=== PATIENT | female | born 1940 | race Asian ===

== ENCOUNTER 2021-11-22 11:53 | Emergency (ER) | payer MEDICARE, OTHER ==
[~2021-11-22] VITALS: Ht 152.4 cm; Wt 29.2 kg
[2021-11-22 13:14] LABS: BASOPHILS % (AUTO) 0.2 % (0.0-2.0); EOSINOPHILS % (AUTO) 0.6 % (1.0-6.0); HEMATOCRIT 35.4 % (36-46); HEMOGLOBIN 11.3 g/dL (12.0-16.0); LYMPHOCYTES # (AUTO) 1.1 K/uL (1.0-4.8); LYMPHOCYTES % (AUTO) 11.4 % (22.0-44.0); MEAN CORPUSCULAR HEMOGLOBIN 26.9 pg (26.0-34.0); MEAN CORPUSCULAR VOLUME 84 fL (80-100); MONOCYTES # (AUTO) 0.7 K/uL (0.1-1.0); MONOCYTES % (AUTO) 7.3 % (2.0-9.0); NEUTROPHILS # (AUTO) 7.8 K/uL (1.8-7.7); NEUTROPHILS % (AUTO) 80.5 % (40.0-70.0); PLATELET COUNT (AUTO) 433 K/uL (150-450); RED BLOOD CELL COUNT(AUTO) 4.22 MIL/uL (4.00-5.20); RED CELL DISTRIBUTION WIDTH 15.7 % (11.5-14.5)
[2021-11-22 13:23] LABS: APPEARANCE,URINE CLEAR (CLEAR); BILIRUBIN,URINE NEGATIVE (NEGATIVE); GLUCOSE, URINE (UA) NEGATIVE (NEGATIVE); KETONES,URINE NEGATIVE (NEGATIVE); LEUKOCYTE ESTERASE ,URINE NEGATIVE (NEGATIVE); NITRATE,URINE NEGATIVE (NEGATIVE); OCCULT BLOOD,URINE NEGATIVE (NEGATIVE); PROTEIN,URINE NEGATIVE (NEGATIVE); SPECIFIC GRAVITIY, URINE 1.022 (1.003-1.030); UROBILINOGEN,URINE <=1.0 mg/dL (<=1.0)
[2021-11-22 13:26] LABS: ANION GAP 5 mmol/L (8-16); CALCIUM, TOTAL 9.5 mg/dL (8.8-10.5); CARBON DIOXIDE 34 mmol/L (22-29); CHLORIDE 97 mmol/L (98-107); CREATININE 0.82 mg/dL (0.60-1.30); GLUCOSE,RANDOM 116 mg/dL (70-110); POTASSIUM 3.6 mmol/L (3.5-5.1); SODIUM SERUM 136 mmol/L (136-145); UREA NITROGEN, BLOOD 15 mg/dL (7-18)
[2021-11-22 13:27] LABS: GLOMERULAR FILTR. RATE CALC > 60 mL/min (>60)
[2021-11-22 13:29] LABS: ALANINE AMINOTRANSFERASE 17 U/L (12-78); ALBUMIN 3.3 g/dL (3.4-5.0); ALKALINE PHOSPHATASE 74 U/L (46-116); ASPARTATE AMINOTRANSFERASE 18 U/L (15-37); BILIRUBIN,TOTAL 0.3 mg/dL (0.1-1.0); TOTAL PROTEIN, SERUM 8.1 g/dL (6.4-8.2)
[2021-11-22 14:40] LABS: COVID AG,FIA SOURCE NASAL SWAB
[2021-11-22] MEDS ORDERED: CefTRIAXone SODIUM 500 MG in DEXTROSE 5%-WATER 50 ML IV ONE (16:45)
[2021-11-22] MEDS ORDERED: AZITHROMYCIN 500 MG TABLET PO ONE (16:45)
[2021-11-22] MEDS ORDERED: AZIT250T9 PO (16:48)
[2021-11-22] MEDS ORDERED: LIDOCAINE/PF 1% 2 ML VIAL IM ONE (17:15)
[2021-11-22] MEDS ORDERED: CefTRIAXone SODIUM 1 GM/VIAL IM ONE (17:15)
[2021-11-22 17:30] VITALS: BP 125/62
== END 2021-11-22 17:55 | disposition home or self-care (01) ==
LOC: EMS 11:56
DX: R04.2 Hemoptysis (principal); J44.9 Chronic obstructive pulmonary disease, unspecified; I10 Essential (primary) hypertension; R05.3 Chronic cough; Z87.891 Personal history of nicotine dependence; Z20.822 Contact with and (suspected) exposure to COVID-19
CPT/HCPCS: 99285; 71250; 71046; 87426; 80053; 81003; 85025; 36415; 96372; J0696; J3490; Q9967; J7060

== ENCOUNTER 2023-12-28 15:24 | Inpatient (IN) | payer MEDICARE, OTHER ==
[~2023-12-28] VITALS: Ht 157.5 cm; Wt 39.4 kg
[~2023-12-28 15:24] MED LIST: ACET-2247 PO; ALBU18HF12 IH; AMOX-426 PO; ASPI-1450 PO; CHOL100062 PO; FERR325T27 PO; FLUT1BLS IH; MEGE400O44 PO
[2023-12-28] MEDS ORDERED: 0.9% SODIUM CHLORIDE 10 ML SYRINGE IVP PRN (15:30)
[2023-12-28] MEDS ORDERED: ASPI-1444 PO (15:37)
[2023-12-28] MEDS ORDERED: MIRT7.5T11 PO (15:37)
[2023-12-28] MEDS ORDERED: DOCU100C33 PO (15:37)
[2023-12-28] MEDS ORDERED: OMEP10CA5 PO (15:37)
[2023-12-28 15:43] LABS: ABG BASE EXCESS 16.1 mmol/L (-2.0-3.0); ABG CARBOXYHEMOGLOBIN 0.4 % (0.5-1.5); ABG HCO3 36.1 mmol/L (21.0-28.0); ABG METHEMOGLOBIN 0.9 % (0.0-1.5); ABG OXYGEN CONTENT 15.3 mL/dL (15.0-23.0); ABG OXYGEN SATURATION 99.7 % (94.0-98.0); ABG OXYHEMOGLOBIN 98.4 % (94.0-98.0); ABG PCO2 137 mmHg (32.0-45.0); ABG TOTAL HEMOGLOBIN 10.4 G/dL (12.0-16.0); SOURCE, BLOOD GAS ARTERIAL; TEMPERATURE, FAHRENHEIT, BG 98.6 FAHREN (96.0-98.6)
[2023-12-28 15:44] LABS: ABG PH 7.137 (7.350-7.450); ALLEN TEST, BLOOD GAS Positive; O2 DEVICE,BLOOD GAS BAG VALVE MASK (ROOM AIR); PO2, ARTERIAL BG 350.8 mmHg (83.0-108.0); SITE, BLOOD GAS LFT RADIAL
[2023-12-28] MEDS: SODIUM CHLORIDE 0.9% 900 ML IV ONE (15:48)
[2023-12-28 15:57] LABS: BASOPHILS % (AUTO) 0.1 % (0.0-2.0); EOSINOPHILS % (AUTO) 0 % (1.0-6.0); HEMATOCRIT 32.6 % (36-46); HEMOGLOBIN 9.6 g/dL (12.0-16.0); LYMPHOCYTES # (AUTO) 2.2 K/uL (1.0-4.8); LYMPHOCYTES % (AUTO) 29.5 % (22.0-44.0); MEAN CORPUSCULAR HGB CONC 29.3 G/dL (31.0-37.0); MEAN CORPUSCULAR VOLUME 103 fL (80-100); MONOCYTES # (AUTO) 0.5 K/uL (0.1-1.0); MONOCYTES % (AUTO) 6.8 % (2.0-9.0); NEUTROPHILS # (AUTO) 4.7 K/uL (1.8-7.7); NEUTROPHILS % (AUTO) 63.6 % (40.0-70.0); PLATELET COUNT (AUTO) 387 K/uL (150-450); RED BLOOD CELL COUNT(AUTO) 3.18 MIL/uL (4.00-5.20); WHITE BLOOD COUNT (AUTO) 7.3 K/uL (4.5-11.0)
[2023-12-28 16:00] VITALS: PULSE 83; RESP 27; O2SAT 100
[2023-12-28 16:09] LABS: PROTHROMBIN TIME 10.7 SEC (9.4-11.6)
[2023-12-28] MEDS: CefTRIAXone 1 GM/DEXTROSE 50 ML IV ONE (16:19)
[2023-12-28 16:20] LABS: COVID AG,FIA SOURCE NASAL SWAB
[2023-12-28 16:20] LABS: ALANINE AMINOTRANSFERASE 16 U/L (12-78); ALBUMIN 2.8 g/dL (3.4-5.0); ALKALINE PHOSPHATASE 60 U/L (46-116); ANION GAP 3 mmol/L (8-16); ASPARTATE AMINOTRANSFERASE 34 U/L (15-37); BILIRUBIN,TOTAL 0.2 mg/dL (0.1-1.0); CALCIUM, TOTAL 9.7 mg/dL (8.8-10.5); CHLORIDE 98 mmol/L (98-107); CREATININE 0.81 mg/dL (0.60-1.30); GLOMERULAR FILTR. RATE CALC > 60 mL/min (>60); GLUCOSE,RANDOM 221 mg/dL (70-110); POTASSIUM 4.4 mmol/L (3.5-5.1); SODIUM SERUM 143 mmol/L (136-145); UREA NITROGEN, BLOOD 21 mg/dL (7-18)
[2023-12-28] MEDS: MethylPREDNISolone SOD SUCC 125 MG/2 ML VIAL IVP ONE (16:20)
[2023-12-28 16:22] LABS: LACTIC ACID 3.5 mmol/L (0.4-2.0)
[2023-12-28 16:23] LABS: CARBON DIOXIDE 42 mmol/L (22-29)
[2023-12-28 16:38] LABS: INFLUENZA TYPE A NEGATIVE FOR TYPE A (NEGATIVE); INFLUENZA TYPE B NEGATIVE FOR TYPE B (NEGATIVE); SARS-COV2 (COVID) ANTIGEN,FIA Negative (Negative)
[2023-12-28 16:46] VITALS: PULSE 81; RESP 31; O2SAT 97
[2023-12-28] MEDS: ALBUTEROL SULFATE 2.5 MG/0.5 ML NEB SOLUTION NEB ONE (16:53)
[2023-12-28] MEDS ORDERED: DEXTROSE 50%-WATER 25 GM/50 ML SYRINGE IVP PRN (17:00)
[2023-12-28 17:01] VITALS: PULSE 83; RESP 34; O2SAT 98
[2023-12-28 17:12] LABS: ABG BASE EXCESS 14.7 mmol/L (-2.0-3.0); ABG CARBOXYHEMOGLOBIN 0.8 % (0.5-1.5); ABG HCO3 35.1 mmol/L (21.0-28.0); ABG METHEMOGLOBIN 0.7 % (0.0-1.5); ABG OXYGEN CONTENT 12.8 mL/dL (15.0-23.0); ABG OXYGEN SATURATION 93.8 % (94.0-98.0); ABG OXYHEMOGLOBIN 92.4 % (94.0-98.0); ABG PCO2 119 mmHg (32.0-45.0); ABG TOTAL HEMOGLOBIN 9.8 G/dL (12.0-16.0); PO2, ARTERIAL BG 76.6 mmHg (83.0-108.0); SOURCE, BLOOD GAS ARTERIAL; TEMPERATURE, FAHRENHEIT, BG 96.4 FAHREN (96.0-98.6)
[2023-12-28 17:13] LABS: ABG PH 7.173 (7.350-7.450); ALLEN TEST, BLOOD GAS Positive; SITE, BLOOD GAS LFT RADIAL
[2023-12-28 17:14] LABS: ABG A-A DIFF O2 520.5 mmHg (10-20.0); O2 DEVICE,BLOOD GAS BIPAP (ROOM AIR)
[2023-12-28] MEDS ORDERED: ALBUTEROL SULFATE 2.5 MG/0.5 ML NEB SOLUTION NEB PRN (17:15)
[2023-12-28] MEDS ORDERED: BISACODYL 10 MG RECTAL RECTAL SUPPOSITORY PR PRN (17:15)
[2023-12-28] MEDS ORDERED: ONDANSETRON HCL 4 MG/2 ML VIAL IVP PRN (17:15)
[2023-12-28] MEDS ORDERED: ETOMIDATE 2 MG/ML 10 ML VIAL ONE (17:27)
[2023-12-28] MEDS ORDERED: ROCURONIUM BROMIDE 10 MG/ML 5 ML VIAL ONE (17:28)
[2023-12-28] MEDS ORDERED: PROPOFOL 1000 MG/ISO-OSM 100 ML ONE (17:28)
[2023-12-28 17:50] VITALS: PULSE 83; RESP 24; O2SAT 100
[2023-12-28] MEDS: ROCURONIUM BROMIDE 10 MG/ML 5 ML VIAL IVP ONE (18:07)
[2023-12-28] MEDS: ETOMIDATE 2 MG/ML 10 ML VIAL IVP ONE (18:07)
[2023-12-28] MEDS: PROPOFOL 1000 MG/ISO-OSM 100 ML IV PRN (18:16)
[2023-12-28] MEDS: LABETALOL HCL 5 MG/ML 20 ML VIAL IVP ONE (18:51)
[2023-12-28 18:54] LABS: ABG BASE EXCESS 16.2 mmol/L (-2.0-3.0); ABG CARBOXYHEMOGLOBIN 0.4 % (0.5-1.5); ABG HCO3 37.2 mmol/L (21.0-28.0); ABG METHEMOGLOBIN 0.7 % (0.0-1.5); ABG OXYGEN CONTENT 15.7 mL/dL (15.0-23.0); ABG OXYGEN SATURATION 99.7 % (94.0-98.0); ABG OXYHEMOGLOBIN 98.6 % (94.0-98.0); ABG PCO2 74 mmHg (32.0-45.0); ABG PH 7.359 (7.350-7.450); ABG TOTAL HEMOGLOBIN 10.4 G/dL (12.0-16.0); SOURCE, BLOOD GAS ARTERIAL
[2023-12-28 18:55] LABS: ALLEN TEST, BLOOD GAS Positive; O2 DEVICE,BLOOD GAS VENTILATOR (ROOM AIR); PEEP,BG 5 cm H2O; PO2, ARTERIAL BG 428.1 mmHg (83.0-108.0); SITE, BLOOD GAS RT RADIAL; SPONTANEOUS VT, BG 278 ml; VT, ABG 270 ml
[2023-12-28 19:00] VITALS: PULSE 60; RESP 24; O2SAT 100
[2023-12-28 19:12] LABS: APPEARANCE,URINE HAZY (CLEAR); BILIRUBIN,URINE NEGATIVE (NEGATIVE); COLOR,URINE YELLOW (YELLOW); GLUCOSE, URINE (UA) TRACE mg/dL (NEGATIVE); KETONES,URINE NEGATIVE (NEGATIVE); LEUKOCYTE ESTERASE ,URINE NEGATIVE (NEGATIVE); NITRATE,URINE NEGATIVE (NEGATIVE); OCCULT BLOOD,URINE MODERATE (NEGATIVE); PH,URINE 6.5 (5.0-8.0); PROTEIN,URINE 100-200,SEE CONFIRM mg/dL (NEGATIVE); SPECIFIC GRAVITIY, URINE 1.014 (1.003-1.030); UROBILINOGEN,URINE <=1.0 mg/dL (<=1.0)
[2023-12-28 19:26] LABS: SULFOSALICYLIC ACID,URINE 2+ (Negative)
[2023-12-28 19:27] LABS: BACTERIA,URINE Few /HPF (None Seen); SQUAMOUS EPITHELIAL CELL,UR Few /LPF (None Seen)
[2023-12-28 22:08] VITALS: PULSE 67; RESP 24; O2SAT 100
[2023-12-28] MEDS: MethylPREDNISolone SOD SUCC 125 MG/2 ML VIAL IVP SCH (23:44)
[2023-12-28] MEDS: HEPARIN SODIUM,PORCINE 5,000 UNITS/ML VIAL SQ SCH (23:44)
[2023-12-28] MEDS: CHLORHEXIDINE GLUCONATE 2% TOWELETTE [2'S/6'S] TP SCH (23:45)
[2023-12-28 23:51] LABS: GLUCOMETER DEV NAME(LOC) ICU.S6; GLUCOSE,POINT OF CARE 152 MG/DL (70-110)
[2023-12-28] MEDS: ETHYL ALCOHOL 62% ANTISEPTIC NASAL SANITIZER 0.6 ML AMPUL NASAL SCH (23:52)
[2023-12-29] VITALS (14 sets, daily range): BP systolic 125–155; BP diastolic 63–76; PULSE 62–76; RESP 20–24; TEMP 95.7–100.5; O2SAT 98–100
[2023-12-29] MEDS: ACETAMINOPHEN 325 MG TABLET PO PRN (03:03)
[2023-12-29 05:56] LABS: GLUCOMETER DEV NAME(LOC) ICU.S6; GLUCOSE,POINT OF CARE 117 MG/DL (70-110)
[2023-12-29 06:13] LABS: ANION GAP 3 mmol/L (8-16); CALCIUM, TOTAL 9.5 mg/dL (8.8-10.5); CARBON DIOXIDE 38 mmol/L (22-29); CHLORIDE 101 mmol/L (98-107); CREATININE 0.72 mg/dL (0.60-1.30); GLOMERULAR FILTR. RATE CALC > 60 mL/min (>60); GLUCOSE,RANDOM 140 mg/dL (70-110); POTASSIUM 4.6 mmol/L (3.5-5.1); SODIUM SERUM 142 mmol/L (136-145); UREA NITROGEN, BLOOD 30 mg/dL (7-18)
[2023-12-29 06:51] LABS: BASOPHILS % (AUTO) 0.1 % (0.0-2.0); EOSINOPHILS % (AUTO) 0 % (1.0-6.0); HEMATOCRIT 31.5 % (36-46); HEMOGLOBIN 9.7 g/dL (12.0-16.0); LYMPHOCYTES # (AUTO) 0.3 K/uL (1.0-4.8); LYMPHOCYTES % (AUTO) 2.1 % (22.0-44.0); MEAN CORPUSCULAR HEMOGLOBIN 30.2 pg (26.0-34.0); MEAN CORPUSCULAR HGB CONC 30.6 G/dL (31.0-37.0); MEAN CORPUSCULAR VOLUME 99 fL (80-100); MONOCYTES # (AUTO) 0.2 K/uL (0.1-1.0); MONOCYTES % (AUTO) 1.1 % (2.0-9.0); NEUTROPHILS # (AUTO) 13.9 K/uL (1.8-7.7); PLATELET COUNT (AUTO) 327 K/uL (150-450); RED BLOOD CELL COUNT(AUTO) 3.19 MIL/uL (4.00-5.20); RED CELL DISTRIBUTION WIDTH 18.9 % (11.5-14.5); WHITE BLOOD COUNT (AUTO) 14.3 K/uL (4.5-11.0)
[2023-12-29 06:54] LABS: NEUTROPHILS % (AUTO) 96.7 % (40.0-70.0)
[2023-12-29] MEDS: PANTOPRAZOLE SODIUM 40 MG/VIAL IVP SCH (08:04)
[2023-12-29] MEDS: PROPOFOL 1000 MG/ISO-OSM 100 ML IV PRN (11:12)
[2023-12-29] MEDS: SODIUM CHLORIDE 0.9% 1,000 ML IV ONE (12:57)
[2023-12-29] MEDS: AZITHROMYCIN 500 MG/NS 250 ML IV SCH (14:12)
[2023-12-29] MEDS: CefTRIAXone 1 GM/DEXTROSE 50 ML IV SCH (15:50)
[2023-12-29 16:38] LABS: MAGNESIUM 1.7 mg/dL (1.80-2.40); PHOSPHORUS 2.9 mg/dL (2.5-4.9)
[2023-12-29 17:42] LABS: ABG BASE EXCESS 12.8 mmol/L (-2.0-3.0); ABG HCO3 35.4 mmol/L (21.0-28.0); ABG METHEMOGLOBIN 0.1 % (0.0-1.5); ABG OXYGEN CONTENT 12.9 mL/dL (15.0-23.0); ABG OXYGEN SATURATION 98.4 % (94.0-98.0); ABG OXYHEMOGLOBIN 98.3 % (94.0-98.0); ABG PCO2 47 mmHg (32.0-45.0); ABG PH 7.506 (7.350-7.450); ABG TOTAL HEMOGLOBIN 9.2 G/dL (12.0-16.0); PO2, ARTERIAL BG 115.2 mmHg (83.0-108.0); SOURCE, BLOOD GAS ARTERIAL; TEMPERATURE, FAHRENHEIT, BG 99.9 FAHREN (96.0-98.6)
[2023-12-29] MEDS: RINGERS SOLUTION,LACTATED 1,000 ML IV SCH (17:42)
[2023-12-29 17:43] LABS: ALLEN TEST, BLOOD GAS Positive; O2 DEVICE,BLOOD GAS VENTILATOR (ROOM AIR); PEEP,BG 5 cm H2O; SITE, BLOOD GAS RT RADIAL; SPONTANEOUS VT, BG 273 ml; VT, ABG 270 ml
[2023-12-29 17:51] LABS: GLUCOMETER DEV NAME(LOC) ICUN.5; GLUCOSE,POINT OF CARE 123 MG/DL (70-110)
[2023-12-29 19:01] LABS: GLUCOMETER DEV NAME(LOC) ICUN.5; GLUCOSE,POINT OF CARE 143 MG/DL (70-110)
[2023-12-30] VITALS (16 sets, daily range): BP systolic 124–159; BP diastolic 56–65; PULSE 57–93; RESP 20–26; TEMP 97.8–99.1; O2SAT 95–100
[2023-12-30] MEDS: HydrALAZINE HCL 20 MG/ML VIAL IVP PRN (00:29)
[2023-12-30 01:56] LABS: GLUCOMETER DEV NAME(LOC) ICUN.5; GLUCOSE,POINT OF CARE 122 MG/DL (70-110)
[2023-12-30 06:31] LABS: BASOPHILS % (AUTO) 0.1 % (0.0-2.0); EOSINOPHILS % (AUTO) 0 % (1.0-6.0); HEMATOCRIT 30.5 % (36-46); HEMOGLOBIN 9.4 g/dL (12.0-16.0); LYMPHOCYTES # (AUTO) 0.3 K/uL (1.0-4.8); LYMPHOCYTES % (AUTO) 2.5 % (22.0-44.0); MEAN CORPUSCULAR HEMOGLOBIN 29.9 pg (26.0-34.0); MEAN CORPUSCULAR HGB CONC 30.9 G/dL (31.0-37.0); MEAN CORPUSCULAR VOLUME 97 fL (80-100); MONOCYTES # (AUTO) 0.2 K/uL (0.1-1.0); NEUTROPHILS # (AUTO) 10.6 K/uL (1.8-7.7); PLATELET COUNT (AUTO) 378 K/uL (150-450); RED BLOOD CELL COUNT(AUTO) 3.15 MIL/uL (4.00-5.20); RED CELL DISTRIBUTION WIDTH 19.2 % (11.5-14.5); WHITE BLOOD COUNT (AUTO) 11.1 K/uL (4.5-11.0)
[2023-12-30 06:37] LABS: NEUTROPHILS % (AUTO) 95.4 % (40.0-70.0)
[2023-12-30 06:56] LABS: ANION GAP 6 mmol/L (8-16); CALCIUM, TOTAL 9.3 mg/dL (8.8-10.5); CARBON DIOXIDE 34 mmol/L (22-29); CHLORIDE 99 mmol/L (98-107); CREATININE 0.76 mg/dL (0.60-1.30); FERRITIN 130 ng/mL (8-252); GLOMERULAR FILTR. RATE CALC > 60 mL/min (>60); GLUCOSE,RANDOM 132 mg/dL (70-110); POTASSIUM 4.3 mmol/L (3.5-5.1); SODIUM SERUM 139 mmol/L (136-145); THYROID STIMULATING HORMONE 1.72 uIU/mL (0.36-3.74); UREA NITROGEN, BLOOD 42 mg/dL (7-18)
[2023-12-30] MEDS: THIAMINE 100 MG TABLET PO SCH (08:40)
[2023-12-30] MEDS: MULTIVITAMINS, THERAPEUTIC 15 ML UDCUP GT SCH (08:41)
[2023-12-30 09:25] LABS: GLUCOMETER DEV NAME(LOC) ICUN.5; GLUCOSE,POINT OF CARE 119 MG/DL (70-110)
[2023-12-30] MEDS: MAGNESIUM SULFATE 1 GM in DEXTROSE 5%-WATER 50 ML IV ONE (11:43)
[2023-12-30] MEDS ORDERED: SODIUM CHLORIDE 0.9% 250 ML IV ONE (11:49)
[2023-12-30 12:58] LABS: ABG BASE EXCESS 8.9 mmol/L (-2.0-3.0); ABG CARBOXYHEMOGLOBIN 0.3 % (0.5-1.5); ABG HCO3 31.2 mmol/L (21.0-28.0); ABG METHEMOGLOBIN 0.1 % (0.0-1.5); ABG OXYGEN CONTENT 14.4 mL/dL (15.0-23.0); ABG OXYGEN SATURATION 97.7 % (94.0-98.0); ABG OXYHEMOGLOBIN 97.3 % (94.0-98.0); ABG PCO2 63 mmHg (32.0-45.0); ABG PH 7.358 (7.350-7.450); ABG TOTAL HEMOGLOBIN 10.4 G/dL (12.0-16.0); PO2, ARTERIAL BG 114.4 mmHg (83.0-108.0); SOURCE, BLOOD GAS ARTERIAL; TEMPERATURE, FAHRENHEIT, BG 98.2 FAHREN (96.0-98.6)
[2023-12-30 13:01] LABS: ABG A-A DIFF O2 99.2 mmHg (10-20.0); ALLEN TEST, BLOOD GAS Positive; SITE, BLOOD GAS RT BRACHIAL
[2023-12-30 13:03] LABS: O2 DEVICE,BLOOD GAS VENTILATOR (ROOM AIR); VENT MODE, BG CPAP (ROOM AIR)
[2023-12-30 13:04] LABS: CPAP, BG 5 cm H2O; PRESSURE SUPPORT, BG 8 cm H2O
[2023-12-30 13:05] LABS: SPONTANEOUS VT, BG 260 ml
[2023-12-30] MEDS: INSULIN LISPRO 100 UNITS/ML SQ PRN (13:12)
[2023-12-30 13:23] LABS: % IRON SATURATION 11.3 % (22-44); IRON, SERUM 21 mcg/dL (50-175); TOTAL IRON BINDING CAPACITY 185 mcg/dL (250-450)
[2023-12-30 14:15] LABS: VITAMIN B12 LEVEL > 2000 pg/mL (211-911)
[2023-12-30 14:56] LABS: GLUCOMETER DEV NAME(LOC) ICUN.5; GLUCOSE,POINT OF CARE 158 MG/DL (70-110)
[2023-12-30 17:20] LABS: GLUCOMETER DEV NAME(LOC) ICUN.5; GLUCOSE,POINT OF CARE 148 MG/DL (70-110)
[2023-12-31] VITALS (13 sets, daily range): BP systolic 112–159; BP diastolic 51–96; PULSE 57–84; RESP 20–29; TEMP 98.4–99.5; O2SAT 94–99
[2023-12-31 05:26] LABS: GLUCOMETER DEV NAME(LOC) ICU.S6; GLUCOSE,POINT OF CARE 174 MG/DL (70-110)
[2023-12-31 06:01] LABS: GLUCOMETER DEV NAME(LOC) ICU.S6; GLUCOSE,POINT OF CARE 146 MG/DL (70-110)
[2023-12-31] MEDS: ASPIRIN 81 MG CHEWABLE TABLET NG SCH (08:23)
[2023-12-31 08:27] LABS: BASOPHILS % (AUTO) 0.1 % (0.0-2.0); EOSINOPHILS % (AUTO) 0 % (1.0-6.0); HEMATOCRIT 27.3 % (36-46); HEMOGLOBIN 8.6 g/dL (12.0-16.0); LYMPHOCYTES # (AUTO) 0.1 K/uL (1.0-4.8); LYMPHOCYTES % (AUTO) 2.3 % (22.0-44.0); MEAN CORPUSCULAR HEMOGLOBIN 30.3 pg (26.0-34.0); MEAN CORPUSCULAR HGB CONC 31.6 G/dL (31.0-37.0); MEAN CORPUSCULAR VOLUME 96 fL (80-100); MONOCYTES # (AUTO) 0.4 K/uL (0.1-1.0); MONOCYTES % (AUTO) 6.3 % (2.0-9.0); NEUTROPHILS # (AUTO) 5.9 K/uL (1.8-7.7); NEUTROPHILS % (AUTO) 91.3 % (40.0-70.0); PLATELET COUNT (AUTO) 358 K/uL (150-450); RED BLOOD CELL COUNT(AUTO) 2.85 MIL/uL (4.00-5.20); RED CELL DISTRIBUTION WIDTH 19.5 % (11.5-14.5); WHITE BLOOD COUNT (AUTO) 6.4 K/uL (4.5-11.0)
[2023-12-31 08:43] LABS: ANION GAP 5 mmol/L (8-16); CALCIUM, TOTAL 8.6 mg/dL (8.8-10.5); CARBON DIOXIDE 35 mmol/L (22-29); CHLORIDE 101 mmol/L (98-107); GLOMERULAR FILTR. RATE CALC > 60 mL/min (>60); GLUCOSE,RANDOM 148 mg/dL (70-110); POTASSIUM 4.1 mmol/L (3.5-5.1); SODIUM SERUM 141 mmol/L (136-145); UREA NITROGEN, BLOOD 40 mg/dL (7-18)
[2023-12-31 08:46] LABS: TROPONIN I-HIGH SENSITIVITY 41 ng/L (<51)
[2023-12-31] MEDS: DILTIAZEM HCL 5 MG/ML 5 ML VIAL IVP ONE (11:33)
[2023-12-31] MEDS: SOD FERRIC GLUC COMPLX/SUCROSE 125 MG in SODIUM CHLORIDE 0.9% 100 ML IV SCH (11:40)
[2023-12-31] MEDS: METOPROLOL TARTRATE 5 MG/5 ML VIAL IVP ONE (11:40)
[2023-12-31 12:46] LABS: ABG PH 7.392 (7.350-7.450); SITE, BLOOD GAS RT BRACHIAL; SOURCE, BLOOD GAS ARTERIAL
[2023-12-31 12:47] LABS: ABG BASE EXCESS 12.3 mmol/L (-2.0-3.0); ABG PCO2 63 mmHg (32.0-45.0); ABG TOTAL HEMOGLOBIN 10.6 G/dL (12.0-16.0); PO2, ARTERIAL BG 67.7 mmHg (83.0-108.0)
[2023-12-31 12:48] LABS: ABG CARBOXYHEMOGLOBIN 0.4 % (0.5-1.5); ABG METHEMOGLOBIN 0.2 % (0.0-1.5); ABG OXYGEN CONTENT 13.7 mL/dL (15.0-23.0); ABG OXYGEN SATURATION 91.8 % (94.0-98.0); ABG OXYHEMOGLOBIN 91.2 % (94.0-98.0); O2 DEVICE,BLOOD GAS VENTILATOR (ROOM AIR); PEEP,BG 5 cm H2O; PRESSURE SUPPORT, BG 5 cm H2O; VENT MODE, BG Press. Support Vent. (ROOM AIR)
[2023-12-31 13:35] LABS: SPONTANEOUS VT, BG 205 ml
[2023-12-31] MEDS ORDERED: SODIUM CHLORIDE 0.9% 250 ML IV ONE (14:20)
[2023-12-31 15:06] LABS: GLUCOMETER DEV NAME(LOC) ICUN.5; GLUCOSE,POINT OF CARE 192 MG/DL (70-110)
[2024-01-01] VITALS (9 sets, daily range): BP systolic 122–163; BP diastolic 57–67; PULSE 62–82; RESP 14–22; TEMP 97.3–98.9; O2SAT 93–100
[2024-01-01 00:01] LABS: GLUCOMETER DEV NAME(LOC) ICU.S6; GLUCOSE,POINT OF CARE 137 MG/DL (70-110)
[2024-01-01 00:41] LABS: GLUCOMETER DEV NAME(LOC) ICU.S6; GLUCOSE,POINT OF CARE 123 MG/DL (70-110)
[2024-01-01 05:53] LABS: ANION GAP 4 mmol/L (8-16); CALCIUM, TOTAL 9.1 mg/dL (8.8-10.5); CARBON DIOXIDE 35 mmol/L (22-29); CHLORIDE 103 mmol/L (98-107); CREATININE 0.55 mg/dL (0.60-1.30); GLOMERULAR FILTR. RATE CALC > 60 mL/min (>60); GLUCOSE,RANDOM 138 mg/dL (70-110); POTASSIUM 4.5 mmol/L (3.5-5.1); SODIUM SERUM 142 mmol/L (136-145); UREA NITROGEN, BLOOD 32 mg/dL (7-18)
[2024-01-01 06:00] LABS: BASOPHILS % (AUTO) 0.1 % (0.0-2.0); EOSINOPHILS % (AUTO) 0 % (1.0-6.0); HEMATOCRIT 34.3 % (36-46); HEMOGLOBIN 10.1 g/dL (12.0-16.0); LYMPHOCYTES # (AUTO) 0.1 K/uL (1.0-4.8); LYMPHOCYTES % (AUTO) 1.6 % (22.0-44.0); MEAN CORPUSCULAR HEMOGLOBIN 30.5 pg (26.0-34.0); MEAN CORPUSCULAR HGB CONC 29.4 G/dL (31.0-37.0); MEAN CORPUSCULAR VOLUME 104 fL (80-100); MONOCYTES # (AUTO) 0.3 K/uL (0.1-1.0); MONOCYTES % (AUTO) 3.3 % (2.0-9.0); NEUTROPHILS # (AUTO) 7.7 K/uL (1.8-7.7); PLATELET COUNT (AUTO) 375 K/uL (150-450); RED BLOOD CELL COUNT(AUTO) 3.31 MIL/uL (4.00-5.20); RED CELL DISTRIBUTION WIDTH 19.9 % (11.5-14.5); WHITE BLOOD COUNT (AUTO) 8.1 K/uL (4.5-11.0)
[2024-01-01 06:20] LABS: GLUCOMETER DEV NAME(LOC) ICUN.5; GLUCOSE,POINT OF CARE 109 MG/DL (70-110)
[2024-01-01 06:26] LABS: RBC MORPHOLOGY COMMENT ABNORMAL RBC MORPH
[2024-01-01] MEDS: AmLODIPine BESYLATE 5 MG TABLET PO SCH (09:12)
[2024-01-01] MEDS: METOPROLOL SUCCINATE 25 MG ER TABLET PO SCH (11:27)
[2024-01-01 12:01] LABS: GLUCOMETER DEV NAME(LOC) ICUN.5; GLUCOSE,POINT OF CARE 188 MG/DL (70-110)
[2024-01-01 20:11] LABS: GLUCOMETER DEV NAME(LOC) ICUN.5; GLUCOSE,POINT OF CARE 194 MG/DL (70-110)
[2024-01-01 23:06] LABS: GLUCOMETER DEV NAME(LOC) ICU.S6; GLUCOSE,POINT OF CARE 128 MG/DL (70-110)
[2024-01-02 05:08] VITALS: BP 160/66; PULSE 65; RESP 19; TEMP 97.8; O2SAT 100
[2024-01-02 05:16] LABS: GLUCOMETER DEV NAME(LOC) 5N.1D; GLUCOSE,POINT OF CARE 150 MG/DL (70-110)
[2024-01-02 07:04] LABS: EOSINOPHILS % (AUTO) 0 % (1.0-6.0); HEMOGLOBIN 9.6 g/dL (12.0-16.0); LYMPHOCYTES # (AUTO) 0.2 K/uL (1.0-4.8); LYMPHOCYTES % (AUTO) 1.8 % (22.0-44.0); MEAN CORPUSCULAR HEMOGLOBIN 30.2 pg (26.0-34.0); MEAN CORPUSCULAR HGB CONC 30.8 G/dL (31.0-37.0); MEAN CORPUSCULAR VOLUME 98 fL (80-100); MONOCYTES # (AUTO) 0.2 K/uL (0.1-1.0); MONOCYTES % (AUTO) 2.3 % (2.0-9.0); NEUTROPHILS # (AUTO) 8.2 K/uL (1.8-7.7); PLATELET COUNT (AUTO) 370 K/uL (150-450); RED BLOOD CELL COUNT(AUTO) 3.17 MIL/uL (4.00-5.20); RED CELL DISTRIBUTION WIDTH 18.7 % (11.5-14.5); WHITE BLOOD COUNT (AUTO) 8.5 K/uL (4.5-11.0)
[2024-01-02 07:05] LABS: NEUTROPHILS % (AUTO) 95.9 % (40.0-70.0)
[2024-01-02 07:15] VITALS: BP 167/64; PULSE 70; RESP 18; TEMP 97.5; O2SAT 99
[2024-01-02 07:16] LABS: POTASSIUM 4.7 mmol/L (3.5-5.1); UREA NITROGEN, BLOOD 24 mg/dL (7-18)
[2024-01-02 07:25] LABS: RBC MORPHOLOGY COMMENT NORMAL RBC MORPH
[2024-01-02 07:26] LABS: CHLORIDE 102 mmol/L (98-107); SODIUM SERUM 140 mmol/L (136-145)
[2024-01-02 07:34] LABS: CALCIUM, TOTAL 9.1 mg/dL (8.8-10.5); CREATININE 0.49 mg/dL (0.60-1.30); GLOMERULAR FILTR. RATE CALC > 60 mL/min (>60); GLUCOSE,RANDOM 141 mg/dL (70-110)
[2024-01-02 07:36] LABS: ANION GAP 1 mmol/L (8-16); CARBON DIOXIDE 37 mmol/L (22-29)
[2024-01-02 11:35] VITALS: BP 135/57; PULSE 53; RESP 18; TEMP 98.2; O2SAT 98
[2024-01-02 11:56] LABS: GLUCOMETER DEV NAME(LOC) 5N.1D; GLUCOSE,POINT OF CARE 161 MG/DL (70-110)
[2024-01-02] MEDS ORDERED: POTASSIUM CHL 10 MEQ/WATER 50 ML IV PRN (12:45)
[2024-01-02] MEDS: POTASSIUM CHLORIDE 20 MEQ ER TABLET PO PRN (13:15)
[2024-01-02 16:00] VITALS: BP 127/64; PULSE 52; RESP 18; TEMP 98.4; O2SAT 100
[2024-01-02] MEDS: MethylPREDNISolone SOD SUCC 40 MG/ML VIAL IVP SCH (16:27)
[2024-01-02 16:56] LABS: GLUCOMETER DEV NAME(LOC) 5N.1D; GLUCOSE,POINT OF CARE 107 MG/DL (70-110)
[2024-01-02 19:58] VITALS: BP 130/57; PULSE 54; RESP 18; TEMP 98.2; O2SAT 98
[2024-01-03 01:24] VITALS: BP 132/49; PULSE 55; RESP 16; TEMP 97.9; O2SAT 100
[2024-01-03 01:46] LABS: GLUCOMETER DEV NAME(LOC) 5N.1D; GLUCOSE,POINT OF CARE 206 MG/DL (70-110)
[2024-01-03 05:08] VITALS: BP 139/62; PULSE 56; RESP 17; TEMP 97; O2SAT 98
[2024-01-03 06:24] LABS: BASOPHILS % (AUTO) 0.1 % (0.0-2.0); EOSINOPHILS % (AUTO) 0 % (1.0-6.0); HEMATOCRIT 28.8 % (36-46); HEMOGLOBIN 8.7 g/dL (12.0-16.0); LYMPHOCYTES # (AUTO) 0.2 K/uL (1.0-4.8); LYMPHOCYTES % (AUTO) 1.6 % (22.0-44.0); MEAN CORPUSCULAR HGB CONC 30.1 G/dL (31.0-37.0); MEAN CORPUSCULAR VOLUME 100 fL (80-100); MONOCYTES # (AUTO) 0.2 K/uL (0.1-1.0); MONOCYTES % (AUTO) 1.8 % (2.0-9.0); NEUTROPHILS # (AUTO) 11.1 K/uL (1.8-7.7); PLATELET COUNT (AUTO) 307 K/uL (150-450); RED BLOOD CELL COUNT(AUTO) 2.89 MIL/uL (4.00-5.20); RED CELL DISTRIBUTION WIDTH 18.3 % (11.5-14.5); WHITE BLOOD COUNT (AUTO) 11.5 K/uL (4.5-11.0)
[2024-01-03 06:43] LABS: CALCIUM, TOTAL 8.8 mg/dL (8.8-10.5); CARBON DIOXIDE 34 mmol/L (22-29); GLOMERULAR FILTR. RATE CALC > 60 mL/min (>60); GLUCOSE,RANDOM 112 mg/dL (70-110); POTASSIUM 5.5 mmol/L (3.5-5.1); UREA NITROGEN, BLOOD 21 mg/dL (7-18)
[2024-01-03 07:12] LABS: NEUTROPHILS % (AUTO) 96.5 % (40.0-70.0)
[2024-01-03 07:15] LABS: ANION GAP 0 mmol/L (8-16); CHLORIDE 101 mmol/L (98-107); SODIUM SERUM 135 mmol/L (136-145)
[2024-01-03 08:00] VITALS: BP 136/70; PULSE 57; RESP 16; TEMP 98.6; O2SAT 100
[2024-01-03 11:22] LABS: GLUCOMETER DEV NAME(LOC) 5N.1D; GLUCOSE,POINT OF CARE 130 MG/DL (70-110)
[2024-01-03] MEDS: SODIUM POLYSTYRENE SULFONATE 15 GM/60 ML SUSPENSION BOTTLE PO ONE (13:55)
[2024-01-03] MEDS: PredniSONE 20 MG TABLET PO SCH (15:52)
[2024-01-03 16:35] LABS: GLUCOMETER DEV NAME(LOC) 5N.1D; GLUCOSE,POINT OF CARE 214 MG/DL (70-110)
[2024-01-03 17:55] LABS: GLUCOMETER DEV NAME(LOC) 5N.1D; GLUCOSE,POINT OF CARE 149 MG/DL (70-110)
[2024-01-03 19:39] VITALS: BP 145/57; PULSE 68; RESP 17; TEMP 98; O2SAT 97
[2024-01-03 23:50] LABS: GLUCOMETER DEV NAME(LOC) 5N.1D; GLUCOSE,POINT OF CARE 86 MG/DL (70-110)
[2024-01-04 00:07] VITALS: BP 128/59; PULSE 64; RESP 18; TEMP 97.8; O2SAT 96
[2024-01-04 05:52] VITALS: BP 151/76; PULSE 67; RESP 17; TEMP 98; O2SAT 97
[2024-01-04 06:30] LABS: EOSINOPHILS % (AUTO) 0 % (1.0-6.0); HEMOGLOBIN 9.8 g/dL (12.0-16.0); LYMPHOCYTES # (AUTO) 0.2 K/uL (1.0-4.8); LYMPHOCYTES % (AUTO) 1.5 % (22.0-44.0); MEAN CORPUSCULAR HEMOGLOBIN 29.7 pg (26.0-34.0); MEAN CORPUSCULAR HGB CONC 29.6 G/dL (31.0-37.0); MEAN CORPUSCULAR VOLUME 100 fL (80-100); MONOCYTES # (AUTO) 1.1 K/uL (0.1-1.0); MONOCYTES % (AUTO) 7.5 % (2.0-9.0); NEUTROPHILS # (AUTO) 12.9 K/uL (1.8-7.7); PLATELET COUNT (AUTO) 367 K/uL (150-450); RED BLOOD CELL COUNT(AUTO) 3.29 MIL/uL (4.00-5.20); RED CELL DISTRIBUTION WIDTH 18.4 % (11.5-14.5); WHITE BLOOD COUNT (AUTO) 14.2 K/uL (4.5-11.0)
[2024-01-04 06:35] LABS: CALCIUM, TOTAL 8.9 mg/dL (8.8-10.5); CHLORIDE 100 mmol/L (98-107); CREATININE 0.45 mg/dL (0.60-1.30); GLOMERULAR FILTR. RATE CALC > 60 mL/min (>60); GLUCOSE,RANDOM 165 mg/dL (70-110); PHOSPHORUS 2.2 mg/dL (2.5-4.9); POTASSIUM 4.2 mmol/L (3.5-5.1); SODIUM SERUM 137 mmol/L (136-145); UREA NITROGEN, BLOOD 22 mg/dL (7-18)
[2024-01-04 06:54] LABS: ANION GAP 0 mmol/L (8-16); CARBON DIOXIDE 41 mmol/L (22-29)
[2024-01-04 08:00] VITALS: BP 154/59; PULSE 62; RESP 18; TEMP 98.4; O2SAT 97
[2024-01-04 08:11] LABS: GLUCOMETER DEV NAME(LOC) 5N.1D; GLUCOSE,POINT OF CARE 140 MG/DL (70-110)
[2024-01-04 08:47] LABS: RBC MORPHOLOGY COMMENT ABNORMAL RBC MORPH
[2024-01-04 12:00] VITALS: BP 162/57; PULSE 60; RESP 17; TEMP 97.9; O2SAT 91
[2024-01-04 16:00] VITALS: BP 150/72; PULSE 64; RESP 18; TEMP 98; O2SAT 93
[2024-01-05] VITALS (9 sets, daily range): BP systolic 114–146; BP diastolic 46–62; PULSE 53–63; RESP 16–26; TEMP 97–98.4; O2SAT 94–100
[2024-01-05 01:06] LABS: GLUCOMETER DEV NAME(LOC) 5N.1D; GLUCOSE,POINT OF CARE 192 MG/DL (70-110)
[2024-01-05 01:06] LABS: GLUCOMETER DEV NAME(LOC) 5N.1D; GLUCOSE,POINT OF CARE 155 MG/DL (70-110)
[2024-01-05 01:06] LABS: GLUCOMETER DEV NAME(LOC) 5N.1D; GLUCOSE,POINT OF CARE 148 MG/DL (70-110)
[2024-01-05] MEDS: ATORVASTATIN CALCIUM 10 MG TABLET PO SCH (09:54)
[2024-01-05] MEDS: AmLODIPine BESYLATE 10 MG TABLET PO SCH (09:54)
[2024-01-05 12:10] LABS: GLUCOMETER DEV NAME(LOC) 5N.1D; GLUCOSE,POINT OF CARE 87 MG/DL (70-110)
[2024-01-05 12:10] LABS: GLUCOMETER DEV NAME(LOC) 5N.1D; GLUCOSE,POINT OF CARE 123 MG/DL (70-110)
[2024-01-05 12:17] LABS: ABG BASE EXCESS 19.7 mmol/L (-2.0-3.0); ABG CARBOXYHEMOGLOBIN 0.6 % (0.5-1.5); ABG HCO3 40.4 mmol/L (21.0-28.0); ABG OXYGEN CONTENT 12.9 mL/dL (15.0-23.0); ABG OXYGEN SATURATION 95.9 % (94.0-98.0); ABG OXYHEMOGLOBIN 95.3 % (94.0-98.0); ABG PCO2 98 mmHg (32.0-45.0); ABG PH 7.292 (7.350-7.450); ABG TOTAL HEMOGLOBIN 9.5 G/dL (12.0-16.0); PO2, ARTERIAL BG 84.5 mmHg (83.0-108.0); SOURCE, BLOOD GAS ARTERIAL
[2024-01-05 12:18] LABS: ABG A-A DIFF O2 29.6 mmHg (10-20.0); ALLEN TEST, BLOOD GAS Positive; O2 DEVICE,BLOOD GAS CANNULA (ROOM AIR); SITE, BLOOD GAS RT RADIAL
[2024-01-05 15:35] LABS: ABG BASE EXCESS 14.6 mmol/L (-2.0-3.0); ABG CARBOXYHEMOGLOBIN 0.5 % (0.5-1.5); ABG HCO3 36.5 mmol/L (21.0-28.0); ABG OXYGEN CONTENT 12.7 mL/dL (15.0-23.0); ABG OXYGEN SATURATION 97.6 % (94.0-98.0); ABG OXYHEMOGLOBIN 97.1 % (94.0-98.0); ABG PCO2 60 mmHg (32.0-45.0); ABG TOTAL HEMOGLOBIN 9.2 G/dL (12.0-16.0); PO2, ARTERIAL BG 88.6 mmHg (83.0-108.0); SOURCE, BLOOD GAS ARTERIAL
[2024-01-05 15:36] LABS: ABG A-A DIFF O2 91.7 mmHg (10-20.0); ALLEN TEST, BLOOD GAS Positive; O2 DEVICE,BLOOD GAS BIPAP (ROOM AIR); SITE, BLOOD GAS RT RADIAL; SPONTANEOUS VT, BG 252 ml
[2024-01-05] MEDS: CefTAZidime PENTAHYDRATE 1 GM in DEXTROSE 5%-WATER 50 ML IV SCH (17:56)
[2024-01-05 18:26] LABS: GLUCOMETER DEV NAME(LOC) 5N.1D; GLUCOSE,POINT OF CARE 139 MG/DL (70-110)
[2024-01-05 22:41] LABS: GLUCOMETER DEV NAME(LOC) 5N.1D; GLUCOSE,POINT OF CARE 131 MG/DL (70-110)
[2024-01-06] VITALS (7 sets, daily range): BP systolic 121–140; BP diastolic 54–66; PULSE 52–67; RESP 18–24; TEMP 97.5–98; O2SAT 97–100
[2024-01-06 06:31] LABS: GLUCOMETER DEV NAME(LOC) 5N.1D; GLUCOSE,POINT OF CARE 85 MG/DL (70-110)
[2024-01-06 06:57] LABS: PHOSPHORUS 0.9 mg/dL (2.5-4.9)
[2024-01-06 08:41] LABS: ANION GAP 4 mmol/L (8-16); CALCIUM, TOTAL 8.3 mg/dL (8.8-10.5); CARBON DIOXIDE 37 mmol/L (22-29); CHLORIDE 98 mmol/L (98-107); CREATININE 0.32 mg/dL (0.60-1.30); GLOMERULAR FILTR. RATE CALC > 60 mL/min (>60); GLUCOSE,RANDOM 91 mg/dL (70-110); SODIUM SERUM 139 mmol/L (136-145); UREA NITROGEN, BLOOD 17 mg/dL (7-18)
[2024-01-06] MEDS: SODIUM,POTASSIUM PHOSPHATES POWDER PACKET PO ONE ×2 (08:46→18:18)
[2024-01-06 12:36] LABS: GLUCOMETER DEV NAME(LOC) 5N.1D; GLUCOSE,POINT OF CARE 122 MG/DL (70-110)
[2024-01-06] MEDS ORDERED: SODIUM CHLORIDE 0.9% 100 ML ONE (13:42)
[2024-01-06] MEDS: POTASSIUM PHOS,M-BASIC-D-BASIC 30 MEQ in DEXTROSE 5%-WATER 150 ML IV ONE (15:41)
[2024-01-06 17:31] LABS: GLUCOMETER DEV NAME(LOC) 5N.1D; GLUCOSE,POINT OF CARE 173 MG/DL (70-110)
[2024-01-07] VITALS (13 sets, daily range): BP systolic 112–145; BP diastolic 45–73; PULSE 54–63; RESP 18–25; TEMP 98–99; O2SAT 94–100
[2024-01-07 06:35] LABS: BASOPHILS % (AUTO) 0.1 % (0.0-2.0); EOSINOPHILS % (AUTO) 0.5 % (1.0-6.0); HEMOGLOBIN 9.4 g/dL (12.0-16.0); LYMPHOCYTES # (AUTO) 0.4 K/uL (1.0-4.8); LYMPHOCYTES % (AUTO) 6.8 % (22.0-44.0); MEAN CORPUSCULAR HEMOGLOBIN 30.5 pg (26.0-34.0); MEAN CORPUSCULAR HGB CONC 31.3 G/dL (31.0-37.0); MEAN CORPUSCULAR VOLUME 97 fL (80-100); MONOCYTES # (AUTO) 0.7 K/uL (0.1-1.0); MONOCYTES % (AUTO) 11.3 % (2.0-9.0); NEUTROPHILS # (AUTO) 5.1 K/uL (1.8-7.7); NEUTROPHILS % (AUTO) 81.3 % (40.0-70.0); PLATELET COUNT (AUTO) 420 K/uL (150-450); RED BLOOD CELL COUNT(AUTO) 3.09 MIL/uL (4.00-5.20); WHITE BLOOD COUNT (AUTO) 6.3 K/uL (4.5-11.0)
[2024-01-07 06:38] LABS: ANION GAP -3 mmol/L (8-16); CHLORIDE 96 mmol/L (98-107); GLOMERULAR FILTR. RATE CALC > 60 mL/min (>60); GLUCOSE,RANDOM 85 mg/dL (70-110); POTASSIUM 4.4 mmol/L (3.5-5.1); SODIUM SERUM 137 mmol/L (136-145); UREA NITROGEN, BLOOD 11 mg/dL (7-18)
[2024-01-07 06:40] LABS: GLUCOMETER DEV NAME(LOC) 5N.1D; GLUCOSE,POINT OF CARE 221 MG/DL (70-110)
[2024-01-07 06:52] LABS: CARBON DIOXIDE 44 mmol/L (22-29)
[2024-01-07 06:54] LABS: PHOSPHORUS 1.2 mg/dL (2.5-4.9)
[2024-01-07 08:13] LABS: ABG BASE EXCESS 24.7 mmol/L (-2.0-3.0); ABG CARBOXYHEMOGLOBIN 0.6 % (0.5-1.5); ABG HCO3 45.8 mmol/L (21.0-28.0); ABG METHEMOGLOBIN 0.1 % (0.0-1.5); ABG OXYGEN CONTENT 12.1 mL/dL (15.0-23.0); ABG OXYGEN SATURATION 92.6 % (94.0-98.0); ABG PH 7.458 (7.350-7.450); ABG TOTAL HEMOGLOBIN 9.3 G/dL (12.0-16.0); PO2, ARTERIAL BG 61.7 mmHg (83.0-108.0); SOURCE, BLOOD GAS ARTERIAL; TEMPERATURE, FAHRENHEIT, BG 98.6 FAHREN (96.0-98.6)
[2024-01-07 08:14] LABS: ABG A-A DIFF O2 106.4 mmHg (10-20.0); ABG PCO2 70 mmHg (32.0-45.0); ALLEN TEST, BLOOD GAS Positive; O2 DEVICE,BLOOD GAS BIPAP (ROOM AIR); SITE, BLOOD GAS RT RADIAL
[2024-01-07 08:15] LABS: SPONTANEOUS VT, BG 250 ml
[2024-01-07] MEDS: AcetaZOLAMIDE 250 MG TABLET PO SCH (09:35)
[2024-01-07] MEDS: SODIUM,POTASSIUM PHOSPHATES POWDER PACKET PO ONE (12:54)
[2024-01-07 15:05] LABS: GLUCOMETER DEV NAME(LOC) 5N.1D; GLUCOSE,POINT OF CARE 170 MG/DL (70-110)
[2024-01-07 17:30] LABS: GLUCOMETER DEV NAME(LOC) 5N.1D; GLUCOSE,POINT OF CARE 93 MG/DL (70-110)
[2024-01-07 20:41] LABS: GLUCOMETER DEV NAME(LOC) 5N.1D; GLUCOSE,POINT OF CARE 119 MG/DL (70-110)
[2024-01-08] VITALS (13 sets, daily range): BP systolic 101–135; BP diastolic 44–62; PULSE 58–84; RESP 19–32; TEMP 98–98.6; O2SAT 97–100
[2024-01-08 09:59] LABS: BASOPHILS % (AUTO) 0.3 % (0.0-2.0); EOSINOPHILS % (AUTO) 0.9 % (1.0-6.0); HEMATOCRIT 26.6 % (36-46); HEMOGLOBIN 8.4 g/dL (12.0-16.0); LYMPHOCYTES # (AUTO) 0.4 K/uL (1.0-4.8); LYMPHOCYTES % (AUTO) 4.8 % (22.0-44.0); MEAN CORPUSCULAR HEMOGLOBIN 30.4 pg (26.0-34.0); MEAN CORPUSCULAR HGB CONC 31.5 G/dL (31.0-37.0); MEAN CORPUSCULAR VOLUME 97 fL (80-100); MONOCYTES # (AUTO) 0.6 K/uL (0.1-1.0); NEUTROPHILS # (AUTO) 7.1 K/uL (1.8-7.7); PLATELET COUNT (AUTO) 389 K/uL (150-450); RED BLOOD CELL COUNT(AUTO) 2.75 MIL/uL (4.00-5.20); RED CELL DISTRIBUTION WIDTH 17.8 % (11.5-14.5); WHITE BLOOD COUNT (AUTO) 8.2 K/uL (4.5-11.0)
[2024-01-08 10:15] LABS: ANION GAP 1 mmol/L (8-16); CALCIUM, TOTAL 7.8 mg/dL (8.8-10.5); CARBON DIOXIDE 39 mmol/L (22-29); CHLORIDE 98 mmol/L (98-107); CREATININE 0.41 mg/dL (0.60-1.30); GLOMERULAR FILTR. RATE CALC > 60 mL/min (>60); GLUCOSE,RANDOM 130 mg/dL (70-110); POTASSIUM 3.4 mmol/L (3.5-5.1); SODIUM SERUM 138 mmol/L (136-145); UREA NITROGEN, BLOOD 14 mg/dL (7-18)
[2024-01-08 10:52] LABS: PHOSPHORUS 1.2 mg/dL (2.5-4.9)
[2024-01-08] MEDS: SODIUM,POTASSIUM PHOSPHATES POWDER PACKET PO ONE (12:10)
[2024-01-08] MEDS: POTASSIUM CHLORIDE 20 MEQ ER TABLET PO PRN (12:10)
[2024-01-08 19:41] LABS: GLUCOMETER DEV NAME(LOC) 5S.1C; GLUCOSE,POINT OF CARE 183 MG/DL (70-110)
[2024-01-08 19:41] LABS: GLUCOMETER DEV NAME(LOC) 5S.1C; GLUCOSE,POINT OF CARE 321 MG/DL (70-110)
[2024-01-08 19:41] LABS: GLUCOMETER DEV NAME(LOC) 5S.1C; GLUCOSE,POINT OF CARE 98 MG/DL (70-110)
[2024-01-08 21:35] LABS: GLUCOMETER DEV NAME(LOC) 5S.1C; GLUCOSE,POINT OF CARE 257 MG/DL (70-110)
[2024-01-09] VITALS (9 sets, daily range): BP systolic 108–137; BP diastolic 36–60; PULSE 57–68; RESP 14–24; TEMP 97.9–98.4; O2SAT 97–100
[2024-01-09 06:28] LABS: BASOPHILS % (AUTO) 0.1 % (0.0-2.0); EOSINOPHILS % (AUTO) 0.2 % (1.0-6.0); HEMATOCRIT 25.4 % (36-46); LYMPHOCYTES # (AUTO) 0.4 K/uL (1.0-4.8); MEAN CORPUSCULAR HGB CONC 31.4 G/dL (31.0-37.0); MEAN CORPUSCULAR VOLUME 96 fL (80-100); MONOCYTES # (AUTO) 0.6 K/uL (0.1-1.0); MONOCYTES % (AUTO) 6.5 % (2.0-9.0); NEUTROPHILS # (AUTO) 8.7 K/uL (1.8-7.7); PLATELET COUNT (AUTO) 379 K/uL (150-450); RED BLOOD CELL COUNT(AUTO) 2.65 MIL/uL (4.00-5.20); RED CELL DISTRIBUTION WIDTH 17.9 % (11.5-14.5); WHITE BLOOD COUNT (AUTO) 9.7 K/uL (4.5-11.0)
[2024-01-09 06:38] LABS: NEUTROPHILS % (AUTO) 89.2 % (40.0-70.0)
[2024-01-09 06:40] LABS: GLUCOMETER DEV NAME(LOC) 5S.1C; GLUCOSE,POINT OF CARE 92 MG/DL (70-110)
[2024-01-09 07:59] LABS: ANION GAP 4 mmol/L (8-16); CALCIUM, TOTAL 7.7 mg/dL (8.8-10.5); CARBON DIOXIDE 37 mmol/L (22-29); CHLORIDE 98 mmol/L (98-107); CREATININE 0.31 mg/dL (0.60-1.30); GLOMERULAR FILTR. RATE CALC > 60 mL/min (>60); GLUCOSE,RANDOM 85 mg/dL (70-110); POTASSIUM 4.4 mmol/L (3.5-5.1); SODIUM SERUM 139 mmol/L (136-145); UREA NITROGEN, BLOOD 14 mg/dL (7-18)
[2024-01-09] MEDS: SODIUM,POTASSIUM PHOSPHATES POWDER PACKET PO ONE (09:19)
[2024-01-09] MEDS: SODIUM PHOS,M-BASIC-D-BASIC 20 MEQ in DEXTROSE 5%-WATER 100 ML IV ONE (11:48)
[2024-01-09 12:30] LABS: GLUCOMETER DEV NAME(LOC) 5S.1C; GLUCOSE,POINT OF CARE 155 MG/DL (70-110)
[2024-01-09] MEDS: MAGNESIUM SULFATE 2 GM/WATER 50 ML IV ONE (15:46)
[2024-01-09 17:51] LABS: ANION GAP 6 mmol/L (8-16); CALCIUM, TOTAL 7.4 mg/dL (8.8-10.5); CARBON DIOXIDE 36 mmol/L (22-29); CHLORIDE 97 mmol/L (98-107); CREATININE 0.55 mg/dL (0.60-1.30); GLOMERULAR FILTR. RATE CALC > 60 mL/min (>60); GLUCOSE,RANDOM 221 mg/dL (70-110); PHOSPHORUS 3.7 mg/dL (2.5-4.9); POTASSIUM 4.6 mmol/L (3.5-5.1); SODIUM SERUM 139 mmol/L (136-145); UREA NITROGEN, BLOOD 17 mg/dL (7-18)
[2024-01-09 18:00] LABS: GLUCOMETER DEV NAME(LOC) 5S.1C; GLUCOSE,POINT OF CARE 194 MG/DL (70-110)
[2024-01-09 20:31] LABS: GLUCOMETER DEV NAME(LOC) 5S.1C; GLUCOSE,POINT OF CARE 213 MG/DL (70-110)
[2024-01-10] VITALS (8 sets, daily range): BP systolic 100–124; BP diastolic 43–61; PULSE 56–75; RESP 16–24; TEMP 97.4–98.3; O2SAT 94–100
[2024-01-10 06:11] LABS: GLUCOMETER DEV NAME(LOC) 5S.1C; GLUCOSE,POINT OF CARE 107 MG/DL (70-110)
[2024-01-10] MEDS: METOPROLOL SUCCINATE 25 MG ER TABLET PO SCH (08:24)
[2024-01-10] MEDS: PredniSONE 10 MG TABLET PO SCH (08:26)
[2024-01-10] MEDS ORDERED: SODIUM CHLORIDE 0.9% 500 ML IV ONE (08:36)
[2024-01-10 09:02] LABS: ANION GAP 1 mmol/L (8-16); CALCIUM, TOTAL 7.5 mg/dL (8.8-10.5); CARBON DIOXIDE 37 mmol/L (22-29); CHLORIDE 100 mmol/L (98-107); CREATININE 0.37 mg/dL (0.60-1.30); GLOMERULAR FILTR. RATE CALC > 60 mL/min (>60); GLUCOSE,RANDOM 80 mg/dL (70-110); PHOSPHORUS 2.3 mg/dL (2.5-4.9); POTASSIUM 4.5 mmol/L (3.5-5.1); SODIUM SERUM 138 mmol/L (136-145); UREA NITROGEN, BLOOD 19 mg/dL (7-18)
[2024-01-10] MEDS: SODIUM,POTASSIUM PHOSPHATES POWDER PACKET PO SCH (10:52)
[2024-01-10 14:16] LABS: GLUCOMETER DEV NAME(LOC) 5N.2C; GLUCOSE,POINT OF CARE 210 MG/DL (70-110)
[2024-01-10 20:05] LABS: GLUCOMETER DEV NAME(LOC) 5N.1D; GLUCOSE,POINT OF CARE 304 MG/DL (70-110)
[2024-01-10 20:05] LABS: GLUCOMETER DEV NAME(LOC) 5N.1D; GLUCOSE,POINT OF CARE 141 MG/DL (70-110)
[2024-01-11] VITALS (7 sets, daily range): BP systolic 102–122; BP diastolic 41–46; PULSE 59–69; RESP 17–21; TEMP 98–98.4; O2SAT 96–99
[2024-01-11 01:01] LABS: GLUCOMETER DEV NAME(LOC) 5S.1C; GLUCOSE,POINT OF CARE 300 MG/DL (70-110)
[2024-01-11 07:27] LABS: ANION GAP 1 mmol/L (8-16); CALCIUM, TOTAL 7.3 mg/dL (8.8-10.5); CARBON DIOXIDE 37 mmol/L (22-29); CHLORIDE 98 mmol/L (98-107); CREATININE 0.44 mg/dL (0.60-1.30); GLOMERULAR FILTR. RATE CALC > 60 mL/min (>60); GLUCOSE,RANDOM 74 mg/dL (70-110); PHOSPHORUS 1.5 mg/dL (2.5-4.9); POTASSIUM 4.4 mmol/L (3.5-5.1); SODIUM SERUM 136 mmol/L (136-145); UREA NITROGEN, BLOOD 18 mg/dL (7-18)
[2024-01-11] MEDS ORDERED: CALCIUM CARBONATE 500 MG CHEWABLE TABLET CHEW ONE (08:30)
[2024-01-11] MEDS: SODIUM,POTASSIUM PHOSPHATES POWDER PACKET PO SCH (09:00)
[2024-01-11] MEDS: SODIUM PHOS,M-BASIC-D-BASIC 20 MEQ in DEXTROSE 5%-WATER 100 ML IV ONE (11:12)
[2024-01-11] MEDS: SODIUM,POTASSIUM PHOSPHATES POWDER PACKET PO ONE (12:56)
[2024-01-11] MEDS: *CLINICAL-AZTREONAM DOSING CLINICAL ONE (14:07)
[2024-01-11] MEDS ORDERED: AZTREONAM 2 GM in DEXTROSE 5%-WATER 50 ML IV SCH (15:00)
[2024-01-11 19:06] LABS: GLUCOMETER DEV NAME(LOC) 5N.1D; GLUCOSE,POINT OF CARE 73 MG/DL (70-110)
[2024-01-11 19:06] LABS: GLUCOMETER DEV NAME(LOC) 5N.1D; GLUCOSE,POINT OF CARE 136 MG/DL (70-110)
[2024-01-11] MEDS ORDERED: ZINC SULFATE 220 MG CAPSULE PO SCH (21:00)
== END 2024-01-11 17:00 | DRG 133 ==
LOC: EMS 15:25 → EDH 17:01 → ICU 20:28 → 5N 01-01 23:42
PROVIDERS: ADMIT Internal Medicine; ATTEND Internal Medicine
PROC: 5A09357 Assistance with Respiratory Ventilation, Less than 24 Consecutive Hours, Continuous Positive Airway Pressure (ICD-10-PCS; principal; 2023-12-28)
PROC: 0BH17EZ Insertion of Endotracheal Airway into Trachea, Via Natural or Artificial Opening (ICD-10-PCS; 2023-12-28)
PROC: 5A1945Z Respiratory Ventilation, 24-96 Consecutive Hours (ICD-10-PCS; 2023-12-28)
PROC: 05H933Z Insertion of Infusion Device into Right Brachial Vein, Percutaneous Approach (ICD-10-PCS; 2023-12-30)
PROC: B54MZZA Ultrasonography of Right Upper Extremity Veins, Guidance (ICD-10-PCS; 2023-12-30)
PROC: 5A09357 Assistance with Respiratory Ventilation, Less than 24 Consecutive Hours, Continuous Positive Airway Pressure (ICD-10-PCS; 2023-12-31)
PROC: 5A09357 Assistance with Respiratory Ventilation, Less than 24 Consecutive Hours, Continuous Positive Airway Pressure (ICD-10-PCS; 2024-01-06)
PROC: 5A09357 Assistance with Respiratory Ventilation, Less than 24 Consecutive Hours, Continuous Positive Airway Pressure (ICD-10-PCS; 2024-01-07)
PROC: 5A09357 Assistance with Respiratory Ventilation, Less than 24 Consecutive Hours, Continuous Positive Airway Pressure (ICD-10-PCS; 2024-01-08)
PROC: 5A09357 Assistance with Respiratory Ventilation, Less than 24 Consecutive Hours, Continuous Positive Airway Pressure (ICD-10-PCS; 2024-01-09)
PROC: 5A09357 Assistance with Respiratory Ventilation, Less than 24 Consecutive Hours, Continuous Positive Airway Pressure (ICD-10-PCS; 2024-01-10)
PROC: 5A09357 Assistance with Respiratory Ventilation, Less than 24 Consecutive Hours, Continuous Positive Airway Pressure (ICD-10-PCS; 2024-01-11)
DX: J96.21 Acute and chronic respiratory failure with hypoxia (principal); G93.41 Metabolic encephalopathy; I50.33 Acute on chronic diastolic (congestive) heart failure; E43 Unspecified severe protein-calorie malnutrition; J15.1 Pneumonia due to Pseudomonas; R34 Anuria and oliguria; E87.0 Hyperosmolality and hypernatremia; J15.69 Pneumonia due to other Gram-negative bacteria; E87.4 Mixed disorder of acid-base balance; J47.0 Bronchiectasis with acute lower respiratory infection; J47.1 Bronchiectasis with (acute) exacerbation; J44.0 Chronic obstructive pulmonary disease with (acute) lower respiratory infection; J44.1 Chronic obstructive pulmonary disease with (acute) exacerbation; E11.9 Type 2 diabetes mellitus without complications; I48.0 Paroxysmal atrial fibrillation; E83.42 Hypomagnesemia; Z68.1 Body mass index [BMI] 19.9 or less, adult; I11.0 Hypertensive heart disease with heart failure; I35.0 Nonrheumatic aortic (valve) stenosis; D50.9 Iron deficiency anemia, unspecified; J96.22 Acute and chronic respiratory failure with hypercapnia; R65.10 Systemic inflammatory response syndrome (SIRS) of non-infectious origin without acute organ dysfunction; E87.5 Hyperkalemia; N17.9 Acute kidney failure, unspecified; E83.39 Other disorders of phosphorus metabolism; Z20.822 Contact with and (suspected) exposure to COVID-19; J98.4 Other disorders of lung; K59.00 Constipation, unspecified; N26.1 Atrophy of kidney (terminal); I47.19 Other supraventricular tachycardia; R18.8 Other ascites; R53.81 Other malaise; Z99.81 Dependence on supplemental oxygen; Z87.891 Personal history of nicotine dependence
CPT/HCPCS: 36245; 36569; 36600; 51702; 71045; 71250; 76937; 80048; 80053; 81001; 81002; 82306; 82570; 82607; 82728; 82746; 82805; 82962; 83540; 83550; 83605; 83735; 83880; 84100; 84105; 84132; 84145; 84443; 84484; 84630; 85025; 85610; 87040; 87070; 87081; 87186; 87481; 87804; 92526; 92610; 93005; 93306; 94002; 94003; 94640; 94660; 97110; 97162; 97167; 97530; 97535; 99285; C9113; G0238; J0360; J0456; J0696; J0713; J1644; J2704; J2916; J2919; J3475; J3490; J7040; J7050; J7060; J7120; 36415-L1; 36415-TC; J7512; J7613; X7700; Z7610